=== PATIENT | male | born 1935 | race Caucasian/White ===

== ENCOUNTER 2017-06-05 09:50 | Inpatient (IN) | payer MEDICARE ==
[~2017-06-05] VITALS: Ht 193 cm; Wt 117.1 kg
--- NOTE | ~2017-06-05 | DS ---
Discharge Summary [id number] [place]. [address] NAME: CHUCK CARPIO : 37 STATUS : DIS IN PAT#: [id number] AGE: 81 ADM/REG DATE : 06/05/17 MR#: [id number] REPORT SERV DATE: 06/11/17 DICTATED BY: ZORAN YOUNG DATE: 06/10/17 REPORT STATUS : Draft TRANSCRIBED BY: SHAHLA DATE: 06/10/17 ADMISSION DATE: 06/05/2017 DISCHARGE DATE: 06/10/2017 DIAGNOSES: 1. Acute right mabel cerebrovascular accident. 2. Paroxysmal atrial fibrillation. 3. Hypertension. 4. Type 2 diabetes. 5. History of nonalcoholic steatohepatitis cirrhosis. 6. Benign prostatic hyperplasia. 7. History of Clostridium difficile. 8. Chronic kidney disease stage 3. CONSULTANTS: Neurology, Dr. Newton. FOLLOWUP: The patient should follow [facility] with [facility] in four weeks and follow up with Dr. Roge Vaughn, as scheduled and follow up with the primary care in one to two weeks after rehab. DIET: The patient should continue with recommendations per Speech Pathology with some aspiration precautions. Mechanical soft diet with chopped meats with gravy and nectar thickened liquids. DISCHARGE MEDICATIONS: Aspirin 81 mg p.o. daily; Lipitor 40 mg p.o. q.h.s.; Celexa 20 mg p.o. daily; Plavix 75 mg p.o. daily; vitamin B12 of 1000 mcg IM q.30 days; diltiazem 60 mg p.o. q.8 hours, hold for systolic blood pressure less than 125 and heart rate less than 60; ergocalciferol 50,000 units p.o. q. Wednesday per home dose; gabapentin 100 mg p.o. q.h.s.; level 3 subcu sliding scale insulin; lactulose 15 mL p.o. daily; levothyroxine 50 mcg p.o. q.a.m.; magnesium oxide 400 mg p.o. daily; Protonix 40 mg p.o. breakfast; Florastor one cap p.o. b.i.d.; Aldactone 50 mg p.o. b.i.d., Flomax 0.4 mg p.o. q. evening; Tessalon Perles 100 mg p.o. t.i.d. p.r.n.; hydrocortisone topical cream p.r.n. per home dose; nitroglycerin sublingual p.r.n.; Imdur ER 30 mg p.o. q.a.m., hold for systolic pressures less than 140; Zofran 4 mg sublingual q.4 hours p.r.n.; senna p.r.n.; Breo Ellipta one puff inhaled q.a.m.; albuterol MDI q.4 hours p.r.n.; Easy Iron 200 mg p.o. b.i.d. per home dose; clonidine 0.1 mg p.o. q.6 hours p.r.n. systolic pressures greater than 160. HOSPITALIST: Dr. Sixto Anguiano, Dr. Young. HOSPITAL COURSE: Please see H and P dictated by Dr. Sixto Anguiano for further details. This is a 81-year-old male being followed up with Dr. Roge Vaughn for history of HEAD cirrhosis, also with a past medical history of hypertension, CKD, atrial fibrillation, currently not on anticoagulation due to being a poor candidate for anticoagulation. The patient presented with stroke-like symptoms, found at home on the floor, apparently was on the floor all night, found to have left-sided weakness, was brought to the emergency department. Also, found to have some left-sided facial droop. The patient had a CT of the brain without Discharge Summary [address] [address] NAME: CHUCK CARPIO : 37 STATUS : DIS IN PAT#: [id number] AGE: 81 ADM/REG DATE : 06/05/17 MR#: [id number] REPORT SERV DATE: 06/11/17 DICTATED BY: ZORAN YOUNG DATE: 06/10/17 REPORT STATUS : Draft TRANSCRIBED BY: SHAHLA DATE: 06/10/17 contrast on 06/05/2017 that found no acute changes, but only chronic changes of an old lacunar infarct in the left basal ganglia and left thalamus and right cerebellum with no acute hemorrhage, mass, or infarct seen at that time. However, stroke protocol was continued. Also, the patient was seen by Neurology and admitted to the hospitalist Service. 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 Due to the patient being a poor candidate for anticoagulation, aspirin and Plavix was initially initiated and recommended by Neurology, and the patient also was continued on a statin. Also the patient was placed on telemetry and also was seen by Speech Pathology with recommendations as mentioned above with aspiration precautions with nectar thickened liquids and mechanical soft diet with chopped meat with gravies. Also, the patient had an echocardiogram that was nondiagnostic. He was seen by Physical Therapy with recommendation of inpatient rehab. The patient was approved for [facility]. The patient was discharged to [facility] in stable condition, to follow up as an outpatient. SUSHANT/MODL Zoran Young M.D. / [id number] CC: Laura Avelar SHERRY R Colleen Schmitt, M.D. Gregory J. Nieckula, DO Chirag Patel, M.D.
--- NOTE | ~2017-06-05 | HP ---
History And Physical [id number] [place]. [address] NAME: CHUCK CARPIO : 37 STATUS : ADM Lavern PAT#: [id number] AGE: 81 ADM/REG DATE : 06/05/17 MR#: [id number] REPORT SERV DATE: 06/05/17 DICTATED BY: JESSICA ANGUIANO DATE: 06/05/17 REPORT STATUS : Draft TRANSCRIBED BY: MODL DATE: 06/05/17 DATE OF ADMISSION: 06/05/2017 IDENTIFYING DATA: A 81-year-old white male whose PCP is nurse practitioner, Irais Dunne; comsec manager, Dr. Roge Vaughn; manufacturing coordinator, Dr. Pérez; GI, Dr. Hill. CHIEF COMPLAINT: Stroke. HISTORY OF PRESENT ILLNESS: This history of present illness is obtained by talking with the patient and his daughter at the bedside as well as talking to ER physician, Dr. Doherty and reviewing [employer] and [employer]. Reportedly around 5 p.m. on 06/04/2017, he had another fall when getting out of bed. The daughter states that the staff at the [facility] reports they helped him up, he seemed to be okay. At 9 p.m., they gave him his evening medicines. He seemed to be fine, then around 2300 hours, he fell out of bed, no one knew it. He could not get up. He could not get anybody's attention, his sleeps in another room. He was on the floor all night long. His found him on the floor this morning, called staff, they brought him to the ER. He was found to have left-sided weakness. We were contacted. The daughter states that he has slurred speech today, drooping on the left side of his face. Otherwise, recently the daughter states on Wednesday, the nurse practitioner thought his heart rate was slow, so had an EKG ordered. The daughter does not know what the results were from that EKG. REVIEW OF SYSTEMS: The emergency room put a Castelan catheter in today. He has some urinary incontinence, some stable dyspnea, fatigue. He had some vomiting last night. He has dark stools since he has been on oral iron. He states he is having some dysuria, some frequency, but it is unclear if that is new or not. He denies any fever, cough, nasal congestion, sore throat, chest pain, abdominal pain, diarrhea, bright red blood per rectum. The rest of review of systems is negative. ALLERGIES: HE CLAIMS ALLERGIES TO METFORMIN, PENICILLIN, SULFA, HYDROCODONE. HE HAS KNOWN HYPERTENSION. HE HAS PAROXYSMAL ATRIAL FIBRILLATION, BUT DUE TO MULTIPLE FALLS IN THE PAST, HE HAS NOT BEEN FELT A CANDIDATE SAFE TO BE ON ANTICOAGULATION. HE HAS ALSO HAD MULTIPLE STROKES IN THE PAST AND HAS SOME DEGREE OF DEMENTIA REPORTEDLY THOUGHT TO BE DUE TO THAT. HE HAS HAD SUSPECTED SLEEP APNEA, BUT HE WEARS OXYGEN AT BEDTIME JUST 2 L. THE PATIENT HAS HAD SUSPECTED NONALCOHOLIC STEATOHEPATITIS WITH CIRRHOSIS. HE HAS HAD MULTIPLE TIMES HERE WHERE HE HAS HAD PARACENTESIS, BUT HE HAS A LOW SAAG WHICH HAD RAISED THE POSSIBILITY OF OTHER CAUSES FOR HIS ASCITES. HE ALSO HAS A HISTORY OF DIASTOLIC HEART FAILURE. HE HAS CHRONIC PANCYTOPENIA. HE HAS OBESITY, BENIGN PROSTATIC HYPERTROPHY, PREVIOUS COMPRESSION FRACTURES, AND PREVIOUS CLOSTRIDIUM DIFFICILE COLITIS. HOME MEDICATIONS: Tylenol p.r.n.; DuoNeb p.r.n.; ProAir p.r.n.; Tessalon Perles 100 mg History And Physical [address] [address] NAME: CHUCK CARPIO : 37 STATUS : ADM Lavern PAT#: [id number] AGE: 81 ADM/REG DATE : 06/05/17 MR#: [id number] REPORT SERV DATE: 06/05/17 DICTATED BY: JESSICA ANGUIANO DATE: 06/05/17 REPORT STATUS : Draft TRANSCRIBED BY: SHAHLA DATE: 06/05/17 t.i.d. p.r.n. cough; vitamin D 2000 units daily; Celexa 20 mg daily; Catapres 0.1 mg every six hours p.r.n. systolic greater than 160; vitamin B12 1000 mcg every 30 days; Cardizem CD 240 mg daily, hold if pulse less than 60 or systolic less than 105; vitamin D 50,000 units every week; Easy Iron 200 mg twice a day; Breo Ellipta 100/25 one puff daily; Lasix 40 mg daily; gabapentin 100 mg at bedtime; hydrocortisone topical cream p.r.n.; Lantus 50 units twice a day; Imdur 60 mg daily; lactulose 15 mL p.o. daily; levothyroxine 50 mcg daily; magnesium oxide 400 mg daily; Zofran 4 mg q.8 hours p.r.n.; Protonix 40 mg daily; Florastor 250 mg daily; Senokot 17.5 mg at bedtime p.r.n.; spironolactone 50 mg b.i.d.; Flomax 0.4 mg every evening. SURGERIES: Tonsillectomy, cholecystectomy, umbilical hernia repair. SOCIAL HISTORY: He quit smoking cigarettes and chewing tobacco more than 60 years ago. Has very rare alcohol intake. He lives at an assisted living facility by the name of [facility]. His lives there also. FAMILY HISTORY: Mother had lung disease from smoking, in her 90s. Dad with heart disease in his 70s. He is an only child. DIAGNOSTIC DATA: EKG done today at 0953 hours reveals sinus rhythm with frequent PACs and there was also some PVCs. He has a left anterior fascicular block and he has LVH voltage criteria per my interpretation. Chest x-ray, interpreted by me at this time upon a portable film shows cardiomegaly, some atelectasis. Sodium 139, potassium 4.3, chloride 104, CO2 is 27, BUN 24, creatinine 1.3, glucose 176, calcium 9.1, albumin 3.4. The rest of the CMP is normal. Troponin 0.04. His white count is 5.1, hemoglobin 13.5, platelets are 93,000. Pro time is 14. INR 1.1, PTT is 34.5. PHYSICAL EXAMINATION: VITAL SIGNS: Temp 98, pulse 80, respirations 18, blood pressure 130/70, O2 saturation is 94% on room air. GENERAL: A well-developed, older male, who appears chronically ill, but in no acute distress. HEENT: Head is atraumatic. Pupils are equal, round, and reactive to light. Extraocular motions are very abnormal. He has double vision in almost all shanks. His right eye does not go past the midline to the left medially. His left eye seems to be predominantly leftward gaze, but does seem to have full range of motion. He has difficulty understanding visual field by confrontation, but they are grossly normal other than the diplopia. Ears externally unremarkable. No inflammatory changes noted and hearing mildly diminished bilaterally. Nose, noninflamed externally. Septum midline. Nares patent. Mouth, moist. Good gag. No redness of the throat, gums, or lips. NECK: Supple. No lymph node or thyroid enlargement. The carotids have fair pulses. No bruits. LUNGS: Clear. Good air flow. No wheezes, no rhonchi. Normal respiratory effort. HEART: Predominantly regular without gallop, click, murmur, or rub. ABDOMEN: Obese. Bowel sounds positive. Soft, nondistended, nontender. No masses. No organomegaly. EXTREMITIES: Has muscle atrophy in his hands and in his thighs. No clubbing or cyanosis or History And Physical [address] [address] NAME: CHUCK CARPIO : 37 STATUS : ADM Lavern PAT#: [id number] AGE: 81 ADM/REG DATE : 06/05/17 MR#: [id number] REPORT SERV DATE: 06/05/17 DICTATED BY: JESSICA ANGUIANO DATE: 06/05/17 REPORT STATUS : Draft TRANSCRIBED BY: SHAHLA DATE: 06/05/17 peripheral edema. No actively inflamed skin or joints noted at this time. NEUROLOGIC: He is alert. He is oriented. His speech is slurred, but when I understand the words they are appropriate. He follows commands. He has a significant droop of the left side of the face. His left hand area safety manager is 1/5, his left forearm is 1/5, his left upper arm is 0 to 1/5, his left thigh 1 to 2/5, left calf 1 to 2/5, positive left Babinski. Right upper extremity strength 3/5, right lower extremity strength is 2/5, no Babinski. Cranial nerves 2-12 are notable for the droop of the left side of the face and mildly diminished hearing and slurred speech. ASSESSMENT: 1. Acute left facial droop, slurred speech, weak left upper extremity more than the left lower extremity along with diplopia most consistent with an acute ischemic stroke in a gentleman who has had multiple strokes in the past and who was felt not to be a candidate for anticoagulation despite his atrial fibrillation because of his multiple falls in the past. 2. High risk for rhabdomyolysis because he laid on the floor overnight. 3. See past medical history. PLAN: The patient is being admitted to the Neurology floor. We will consult the neuro. We are going to get an MRI. We will get an echocardiogram as well as carotid studies. We will check CPK, A1c, urinalysis. His TSH was just checked in December of this year and was normal at 1.86. With his daughter present, I have asked the patient about his own wishes for end of life. He is quite clear that he does not want intubation or cardiopulmonary resuscitation. He also states he is not in favor of a feeding tube if he failed his swallow study. His daughter states this is consistent with what he has recently been telling her. The patient and daughter are aware that he can change his mind. RSG/MODL Jessica Anguiano M.D. / [id number] CC: MD Vibha Gomez Sherry R. Allen E Atchley, M.D. Chirag Patel, M.D. Colleen Schmitt, M.D.
--- NOTE | ~2017-06-05 | CN ---
Consultation Report [facility] [address] [place]. [address] NAME: CHUCK CARPIO : 37 STATUS : ADM Brandon PAT#: [id number] AGE: 81 ADM/REG DATE : 06/05/17 MR#: [id number] REPORT SERV DATE: 06/05/17 DICTATED BY: DATE: REPORT STATUS : Draft TRANSCRIBED BY: MODL DATE: 06/05/17 NEUROLOGY CONSULTATION DATE OF CONSULTATION: 06/05/2017 REASON FOR CONSULT: Possible stroke. HISTORY OF PRESENT ILLNESS: This is a 81-year-old male who sustained two falls on 06/04/2017, one at roughly 1600 hours and the other one overnight. The patient was noted to have left-sided weakness as well as some numbness and dysarthria and diplopia since the fall. The patient denies symptoms prior to patient's fall on 06/04/2017 and since remains stable without significant improvement. The patient does have a history of prior stroke, ambulating with walker. Earlier this year, the patient was in the hospital for two large volume paracentesis, and the patient has been following up with Dr. Vaughn, mold worker, the patient is currently being managed with medication without any further paracentesis since the hospital discharge. The patient does have a history of arrhythmia issue with the patient seeing Dr. Pérez, previously discussed with the patient regarding anticoagulation by Cardiology, and it was felt that since the patient is high fall risk, anticoagulation might be potentially more risky compared to benefit, and as a result patient has not been on any anticoagulation. The patient also has not been on any aspirin at home. Otherwise, no recent changes in medication and no recent illness. REVIEW OF SYSTEMS: Review of systems negative except for those mentioned in the HPI. PAST MEDICAL HISTORY: The patient's past medical history is fairly complicated including chronic diastolic congestive heart failure, hypertension, hyperlipidemia, history of type 2 diabetes, as well as chronic kidney disease, history of possible dementia, benign prostatic hypertrophy, history of stroke in the past with the patient also has had history of atrial fibrillation, but not on anticoagulation secondary to fall risk. The patient also has had history of portal hypertension with resultant ascites required two paracentesis, currently followed by Dr. Vaughn, history of gastroesophageal reflux disease, as well as well as recurrent C. diff, history of obstructive pulmonary disease on 2 L oxygen at night, history of pancytopenia. ALLERGIES: THE PATIENT WAS NOTED TO HAVE ALLERGY TO PENICILLIN, SULFA DRUG, WELL METFORMIN, AND HYDROCODONE. HOME MEDICATIONS: Consist of Tylenol, DuoNeb, ProAir, Tessalon Perles, vitamin D3, Celexa, Catapres, vitamin B12, Cardizem, vitamin D, EzFe, Breo Ellipta, Lasix, Neurontin, hydrocortisone, Lantus, Imdur, lactulose, levothyroxine, magnesium, Zofran, Protonix, Florastor, Senokot, and Aldactone as well as a Flomax. REVIEW OF SYSTEMS: Consultation Report [facility] [address] [place]. [address] NAME: CHUCK CARPIO : 37 STATUS : ADM Brandon PAT#: [id number] AGE: 81 ADM/REG DATE : 06/05/17 MR#: [id number] REPORT SERV DATE: 06/05/17 DICTATED BY: DATE: REPORT STATUS : Draft TRANSCRIBED BY: MODL DATE: 06/05/17 Otherwise negative except for those mentioned in the HPI. SOCIAL HISTORY: The patient denies tobacco, alcohol, or recreational drug usage. The patient does have remote history of tobacco usage in the 1950s. No current tobacco usage. FAMILY HISTORY: Significant for COPD as well as congestive heart failure. PHYSICAL EXAMINATION: VITAL SIGNS: The patient's physical examination demonstrated vital signs with T-max of 97.9, heart rate of 65 to 86, respiration of 16 to 20, blood pressure of 135 to 142 over 63 to 77. GENERAL: The patient is well developed, well nourished, in no acute distress. CARDIOVASCULAR EXAMINATION: Regular rate and rhythm. No carotid bruits were otherwise auscultated. PULMONARY EXAMINATION: Clear to auscultation bilaterally. NEUROLOGICAL EXAMINATION: Generally, the patient is alert and oriented to person, place, year, and month. Follows simple and 2-step commands. Intact registration. Some difficulties with recall , [id number] dysarthria at the time of evaluation. No clear aphasia. He follows simple and 2-step commands. Cranial nerves 2 through 12; pupils equal, round, and reactive to light. Patient's right eye was noted to have difficulties with the medial as well as the lateral eye movement was noted to have some vertical eye movement. The patient reports diplopia with extraocular eye movement evaluation. Blink to threat response was noted to be intact with the patient noted to have left facial weakness involving upper as well as lower facial weakness at the time of evaluation. Tongue appeared to be midline. Palatal movement was asymmetric at time of evaluation. Facial sensation was symmetric. Hearing was diminished bilaterally. The patient demonstrated 5/5 right upper and right lower extremity strength with the patient demonstrating 1/5 left upper extremity strength and 3/5 left lower extremity strength. Reports symmetrical sensation bilaterally. The patient demonstrated 3+ reflex in the right upper and right lower extremity and 0 reflex in the left upper and left lower extremity. No significant ataxia was noted at the time of evaluation. Gait was not evaluated secondary to weakness. The patient at baseline ambulates with walker. LABORATORY STUDIES: Demonstrated sodium 139, potassium 4.3, chloride 104, bicarb 27, BUN of 24, creatinine 1.30, glucose of 176, calcium of 9.1. White blood cell count of 5.1, hemoglobin of 13.5, hematocrit of 39.2, and platelet count of 93. CT scan of the brain was reviewed. Previously noted stroke was seen. No acute process was noted. Brain atrophy was also seen. IMPRESSION: Stroke or left-sided weakness with BRANDON, concern for possible right brain stem stroke, history of previous possible atrial fibrillation not on anticoagulation secondary to fall risk. The patient was started on aspirin and Lipitor. We will continue medications. Otherwise, we will obtain echocardiogram, MRI as well as MRA of the head and neck, PT, OT, and Speech Therapy, likely needs rehab. Time of onset was 1600 hours on 06/04/2017, NIH stroke scale of 0, alteplase or tPA was not offered secondary to time of onset greater than Consultation Report [address] [address] NAME: CHUCK CARPIO : 37 STATUS : ADM Brandon PAT#: [id number] AGE: 81 ADM/REG DATE : 06/05/17 MR#: [id number] REPORT SERV DATE: 06/05/17 DICTATED BY: DATE: REPORT STATUS : Draft TRANSCRIBED BY: MODL DATE: 06/05/17 4.5 hour. RECOMMENDATION: 1. PT/OT, Speech Therapy evaluation and treatment. 2. MRI of the brain without contrast. 3. MRA of the head and neck. 4. Aspirin and Lipitor. 5. Fasting lipid panel and hemoglobin A1c. 6. Echocardiogram with bubble study. 7. Case Management for rehab. 8. Ammonia, TSH, free T4, vitamin B12 and folate with morning labs. CCH/MODL John Allred MD / [id number] CC: MD Irais Gomez
[~2017-06-05 09:50] MED LIST: 8 HOUR650 MG PO; ACETSUP650 PR; ADVAIR250 INH; AGGRENOX PO; ANUSOL HC SUPP1 SUPP PR; APIDRA SC; ARICEPT10 PO; ASA5GR PO; ASAB PO; ASABAYER PO; ATROVENT HFA17 MCG; B 12 IJ; B 12 PO; B121000P IM; BREO ELLIPTA INH; CARDCD240 PO; CARDCD300 PO; CARTIA XT300 MG/24 PO; CATAPRES2 TOP; CEFT5 PO; CELEXA20 PO; CELEXA40 MG PO; CHLO-TUSS PO; COREG6 PO; COZAAR100 MG PO; DETROLLA4 PO; DILT-XR240 MG PO; DIOV160 PO; DIPYRIDAMOLE25 MG PO; DIPYRIDAMOLE50 MG OR; DIPYRIDAMOLE50 MG PO; DULERA 200 MCG/13 GM INH; DUONEB INH; DYAZIDE1 CAP PO; FISH OIL1200 MG PO; FLOMAX4 PO; FLONASE NAS; FLORASTOR250 MG PO; GENERLAC PO; GLUCOSE PO; GLUCOSE TABLET PO; GLUCOTRO10 PO; GLUCPH PO; HALF81 PO; HUMALOG SC; HYDROCORTISO2.5 % PR; HYDROCORTISONE30 G1 PR; IMDUR30 PO; IMDUR60 PO; INSNOVR; INSNOVR SC; KDUR20 PO; KLOR-CON M2020 MEQ PO; KLOR-CON20 MEQ PO; L20 PO; L40 PO; LANTUS SC; LANTUSCART SC; LOFIB160 PO; LOFIBRA160 MG PO; LOPID6 PO; MAGOX4 PO; NEUR100 PO; NIACIN 500 PO; NORV5 PO; NOVOLOG SC; P10; P20 PO; PLAVIX PO; POLYCARBOPHIL PO; PRAVACHOL40 MG PO; PRILO PO; PROAIR HFA INH; PROCTOSOL HC2.5 % PR; PROTONIX PO; RANITIDINE300 MG PO; SENTAB PO; SEROQUEL25 PO; SINGULAIR1 PO; SPIRO50 PO; T PO; TESS PO; TIAZA4 PO; VANCOCIN HCL125 MG PO; VITAMIN B-121000 MC1 PO; VITAMIN B-122500 MCG SL; VITAMIN D2000 UNIT PO; VITD PO; ZOFRAN ODT4 MG PO; ZOFRAN ODT4 MG PO/SL; ZOFRAN4 PO
[2017-06-05 10:13] LABS: BASOPHILS 0.2 %; BASOPHILS ABSOLUTE 0.01 10/3/uL (0.0-0.16); EOSINOPHILS 0.8 %; EOSINOPHILS ABSOLUTE 0.04 10/3/uL (0.0-0.53); HEMATOCRIT 39.2 % (40.0-51.0); HEMOGLOBIN 13.5 g/dL (13.6-17.8); IMMATURE GRANULOCYTES 0.2 %; IMMATURE GRANULOCYTES ABSOLUTE 0.01 10/3/uL (0.0-0.11); LYMPHOCYTES 13.4 %; LYMPHOCYTES ABSOLUTE 0.68 10/3/uL (0.67-4.30); MONOCYTES 5.1 %; MONOCYTES ABSOLUTE 0.26 10/3/uL (0.21-1.20); NEUTROPHILS 80.3 %; NEUTROPHILS ABSOLUTE 4.06 10/3/uL (2.02-8.40); PLATELET COUNT 93 10/3/uL (150-400); RBC DISTRIBUTION WIDTH 14.3 % (12.0-16.0); RED CELL COUNT 4.54 10/6/uL (4.7-6.1); WHITE BLOOD CELLS 5.1 10/3/uL (4.5-10.5)
[2017-06-05 10:14] LABS: MANUAL DIFF NO %; MEAN CORPUS HGB CONC 34.4 g/dL (32.0-36.0); MEAN CORPUSCULAR HEMOGLOB 29.7 pg (26.0-34.0); MEAN CORPUSCULAR VOLUME 86.3 fL (80-100)
[2017-06-05] MEDS ORDERED: EZFE 200200 MG PO (10:17)
[2017-06-05] MEDS ORDERED: CONSTULOSE PO (10:18)
[2017-06-05] MEDS ORDERED: LEVOTHYROXIN50 MCG PO (10:19)
[2017-06-05 10:21] LABS: INTERNATIONAL NORMAL RATI 1.1 UNITS (-); PARTIAL THROMBO TIME 34.5 SEC (22.5-37.2)
[2017-06-05] MEDS ORDERED: VITAMIN D31000 UNIT PO (10:21)
[2017-06-05] MEDS ORDERED: CAT1 PO (10:23)
[2017-06-05 10:29] LABS: ALBUMIN 3.4 G/DL (3.5-5.0); ALKALINE PHOSPHATASE 94 U/L (45-117); BUN (BLOOD UREA NITROGEN) 24 MG/DL (6-23); CALCIUM, SERUM 9.1 MG/DL (8.5-10.4); CHLORIDE, SERUM 104 MMOL/L (96-112); CO2 (CARBON DIOXIDE) 27 MMOL/L (24-34); GFR AFRICAN AMERICAN 60 ML/MIN (>=60); GFR NON AFRICAN AMERICAN 52 ML/MIN (>=60); GLOBULIN 3.4 G/DL (2.5-4.1); GLUCOSE, SERUM 176 MG/DL (60-99); POTASSIUM, SERUM 4.3 MMOL/L (3.5-5.3); SGOT(AST) 27 U/L (5-40); SGPT(ALT) 32 U/L (5-65); SODIUM, SERUM 139 MMOL/L (135-148); TOTAL BILIRUBIN 1.1 MG/DL (0-1.2); TOTAL PROTEIN 6.8 G/DL (6.0-8.5); TROPONIN I 0.04 NG/ML (<0.05)
[2017-06-05 18:25] LABS: CHOL/HDL RATIO(NOT ORDER) 6.5 (0-5); CK-MB 5.1 NG/ML; TROPONIN I 0.04 NG/ML (<0.05)
[2017-06-05 18:31] LABS: CKMB INDEX (NOT ORD) 2.3
[2017-06-06 02:55] LABS: BASOPHILS 0 %; EOSINOPHILS 1.2 %; EOSINOPHILS ABSOLUTE 0.07 10/3/uL (0.0-0.53); HEMATOCRIT 39.3 % (40.0-51.0); HEMOGLOBIN 13.4 g/dL (13.6-17.8); IMMATURE GRANULOCYTES 0.3 %; IMMATURE GRANULOCYTES ABSOLUTE 0.02 10/3/uL (0.0-0.11); LYMPHOCYTES 15.3 %; LYMPHOCYTES ABSOLUTE 0.88 10/3/uL (0.67-4.30); MEAN CORPUS HGB CONC 34.1 g/dL (32.0-36.0); MEAN CORPUSCULAR HEMOGLOB 29.5 pg (26.0-34.0); MEAN CORPUSCULAR VOLUME 86.6 fL (80-100); MEAN PLATELET VOLUME 10.4 fL (9.2-13.0); MONOCYTES ABSOLUTE 0.46 10/3/uL (0.21-1.20); NEUTROPHILS 75.2 %; NEUTROPHILS ABSOLUTE 4.32 10/3/uL (2.02-8.40); PLATELET COUNT 103 10/3/uL (150-400); RBC DISTRIBUTION WIDTH 14.6 % (12.0-16.0); RED CELL COUNT 4.54 10/6/uL (4.7-6.1); WHITE BLOOD CELLS 5.8 10/3/uL (4.5-10.5)
[2017-06-06 02:56] LABS: MANUAL DIFF NO %
[2017-06-06 03:28] LABS: ASCORBIC ACID (UR NOT ORDER) 40 (NEG); BILIRUBIN, URINE NEGATIVE (NEG); KETONE, URINE NEGATIVE (NEG); LEUKOCYTE ESTERASE(NOT OR LARGE (NEG); WBC (NOT ORDERED) (RFLEX) 58 (0-5)
[2017-06-06 04:09] LABS: BUN (BLOOD UREA NITROGEN) 25 MG/DL (6-23); CALCIUM, SERUM 9.2 MG/DL (8.5-10.4); CHLORIDE, SERUM 106 MMOL/L (96-112); CO2 (CARBON DIOXIDE) 27 MMOL/L (24-34); CPK 208 U/L (0-200); CREATININE 1.37 MG/DL (0.70-1.30); GFR AFRICAN AMERICAN 56 ML/MIN (>=60); GFR NON AFRICAN AMERICAN 49 ML/MIN (>=60); PHOSPHORUS, SERUM 4.3 MG/DL (2.5-4.5); POTASSIUM, SERUM 3.6 MMOL/L (3.5-5.3); SODIUM, SERUM 141 MMOL/L (135-148); TROPONIN I 0.04 NG/ML (<0.05)
[2017-06-06 04:13] LABS: CK-MB 4.5 NG/ML; FOLATE 20.2 NG/ML (>5.2); GLUCOSE, SERUM 103 MG/DL (60-99)
[2017-06-06 10:22] LABS: CK-MB 4.5 NG/ML; CPK 192 U/L (0-200)
[2017-06-09 06:37] LABS: BASOPHILS 0.3 %; BASOPHILS ABSOLUTE 0.02 10/3/uL (0.0-0.16); EOSINOPHILS 5.1 %; HEMATOCRIT 40.1 % (40.0-51.0); HEMOGLOBIN 13.7 g/dL (13.6-17.8); IMMATURE GRANULOCYTES 0.3 %; IMMATURE GRANULOCYTES ABSOLUTE 0.02 10/3/uL (0.0-0.11); LYMPHOCYTES 17.3 %; LYMPHOCYTES ABSOLUTE 1.01 10/3/uL (0.67-4.30); MANUAL DIFF NO %; MEAN CORPUS HGB CONC 34.2 g/dL (32.0-36.0); MEAN CORPUSCULAR HEMOGLOB 29.8 pg (26.0-34.0); MEAN CORPUSCULAR VOLUME 87.2 fL (80-100); MEAN PLATELET VOLUME 10.2 fL (9.2-13.0); MONOCYTES ABSOLUTE 0.47 10/3/uL (0.21-1.20); NEUTROPHILS ABSOLUTE 4.02 10/3/uL (2.02-8.40); PLATELET COUNT 93 10/3/uL (150-400); RBC DISTRIBUTION WIDTH 14.4 % (12.0-16.0); WHITE BLOOD CELLS 5.8 10/3/uL (4.5-10.5)
[2017-06-09 06:51] LABS: CALCIUM, SERUM 9.6 MG/DL (8.5-10.4); CHLORIDE, SERUM 105 MMOL/L (96-112); CO2 (CARBON DIOXIDE) 25 MMOL/L (24-34); CREATININE 1.42 MG/DL (0.70-1.30); GFR AFRICAN AMERICAN 54 ML/MIN (>=60); GFR NON AFRICAN AMERICAN 47 ML/MIN (>=60); POTASSIUM, SERUM 4.2 MMOL/L (3.5-5.3); SODIUM, SERUM 139 MMOL/L (135-148)
[2017-06-09 06:52] LABS: BUN (BLOOD UREA NITROGEN) 38 MG/DL (6-23); GLUCOSE, SERUM 178 MG/DL (60-99)
== END 2017-06-10 20:44 | DRG 65 ==
LOC: ER 09:50 → 1SO 13:59
PROVIDERS: Hospitalist; Internal Medicine
DX: I63.09 Cerebral infarction due to thrombosis of other precerebral artery (principal); G81.94 Hemiplegia, unspecified affecting left nondominant side; D61.818 Other pancytopenia; I13.0 Hypertensive heart and chronic kidney disease with heart failure and stage 1 through stage 4 chronic kidney disease, or unspecified chronic kidney disease; I50.32 Chronic diastolic (congestive) heart failure; K76.6 Portal hypertension; N18.3 Chronic kidney disease, stage 3 (moderate); E11.22 Type 2 diabetes mellitus with diabetic chronic kidney disease; F03.90 Unspecified dementia, unspecified severity, without behavioral disturbance, psychotic disturbance, mood disturbance, and anxiety; I48.0 Paroxysmal atrial fibrillation; Z66 Do not resuscitate; H53.2 Diplopia; E11.42 Type 2 diabetes mellitus with diabetic polyneuropathy; Z68.31 Body mass index [BMI] 31.0-31.9, adult; G47.33 Obstructive sleep apnea (adult) (pediatric); R29.810 Facial weakness; N40.1 Benign prostatic hyperplasia with lower urinary tract symptoms; R47.1 Dysarthria and anarthria; K21.9 Gastro-esophageal reflux disease without esophagitis; R29.700 NIHSS score 0; E78.5 Hyperlipidemia, unspecified; E66.9 Obesity, unspecified; R32 Unspecified urinary incontinence; K75.81 Nonalcoholic steatohepatitis (NASH); Z79.4 Long term (current) use of insulin; Z79.899 Other long term (current) drug therapy; Z87.891 Personal history of nicotine dependence; R29.6 Repeated falls; Z91.81 History of falling; Z88.0 Allergy status to penicillin; Z88.5 Allergy status to narcotic agent
CPT/HCPCS: 70450; 70544; 70548; 70551; 70551-52; 71010; 74230; 80048; 80053; 80061; 81001; 82140; 82272; 82550; 82553; 82607; 82746; 82962; 83036; 83735; 84100; 84439; 84443; 84484; 85025; 85610; 85730; 87086; 92523-GN; 92611-GN; 93005; 94640; 97110-GP; 97112-GO; 97163-GP; 97164-GP; 97166-GO; 97530-GP; 97535-GO; 99285; A9270-GY; A9577; C8929; G8978-CM-GP; G8978-CN-GP; G8979-CK-GP; G8979-CL-GP; G8987-CL-GO; G8988-CK-GO; G8996-CK-GN; G8997-CK-GN; G8998-CK-GN; G8999-CJ-GN; G9158-CJ-GN; G9186-CJ-GN; Q9957